=== PATIENT | male | born 1965 | race Caucasian/White ===

== ENCOUNTER → 2019-08-16 13:33 | Outpatient (CLI) | payer MEDICARE | END | disposition home or self-care (01) | LOC: D.LAB 13:33 → D.RAD 14:15 → D.RT 15:00 | PROVIDERS: ATTEND Internal Medicine Pulmonary Disease | DX: J44.9 Chronic obstructive pulmonary disease, unspecified (principal) ==

== ENCOUNTER 2020-03-11 05:50 | Day surgery (SDC) | payer MEDICARE ==
[~2020-03-11] VITALS: Ht 177.8 cm; Wt 140.9 kg
[2020-03-11 06:54] LABS: HEMOGLOBIN 13.8 g/dL (13.5-17.5); MCH 28.3 pg (26.0-34.0); MCHC 31.4 g/dL (31.0-37.0); MCV 90.3 fL (80.0-100.0); RBC 4.87 10x6/uL (4.20-6.10); RDW 12.6 % (11.5-14.5); WBC 7.3 10x3/uL (4.8-10.8)
[2020-03-11 06:58] VITALS: BP 146/108; Ht 177.8 cm; Wt 140.9 kg
--- NOTE | 2020-03-11 08:32 | NUR ---
0892 DR. BRITTANY ROSALES
--- NOTE | 2020-03-11 08:46 | NUR ---
0844 PT DRESSING STATES READY TO GO EAT. O2 98% ON 2L, O2 REMOVED. DENIES PROBLEMS. O2 DC'D. IV DC'D WITH CATH INTACT.
--- NOTE | 2020-03-12 14:37 | OP ---
PATIENT NAME: BRENT BAGLEY MEDICAL RECORD: [id number] :67 LOCATION:[facility] ADMISSION DATE: SURGEON: JANINE SOTO DO DATE OF OPERATION: 03/11/2020 PROCEDURE: EGD with biopsies. INDICATIONS FOR PROCEDURE: Heartburn. SCOPE: Olympus video gastroscope. MEDICATIONS: Versed 2 mg IV, fentanyl 100 mcg IV, propofol 200 mg IV per anesthesia. COMPLICATIONS: None. FINDINGS AND DESCRIPTION OF PROCEDURE: Informed consent was given. The patient was made comfortable with the above medication. After reaching an adequate level of sedation by slow IV push, the patient was placed on his left side. The endoscope was advanced under direct visualization through the mouth to the second portion of the duodenum with ease. The upper esophagus appeared normal. In the middle and distal thirds of the esophagus as well as the GE junction, there was evidence of LA class C reflux-induced esophagitis with greater than 50% of the circumference of the GE junction involved with esophagitis, but there was extension up to at least the mid esophagus of reflux changes. Cold forceps biopsies were taken from the GE junction. The endoscope was advanced beyond the GE junction into the stomach and retroflexed to view the cardia and fundus, which appeared normal. The body of the stomach also appeared normal. In the antrum and prepyloric regions there were some mild chronic gastritis changes consisting of erythema and granularity. Cold forceps, biopsies were taken from the antrum and incisura to submit for histopathology and to rule out the presence of H. pylori. The endoscope was advanced beyond the pylorus and into the duodenum, which appeared normal to the second portion. The endoscope was then withdrawn from the patient. The patient tolerated the procedure well and there were no complications. IMPRESSION: 1. LA class C reflux-induced esophagitis with extension up to the mid esophagus. 2. Mild chronic gastritis of the antrum and prepyloric region. PLAN AND RECOMMENDATIONS: 1. Discharge home when recovery parameters are met. 2. Follow up biopsy specimen results. 3. GERD diet and reflux precautions. 4. Continue current medications, but increase omeprazole to 40 mg daily times 60 days. After that time, can consider reducing back to 20 mg if tolerated, but the patient may require an increased dose based on endoscopic findings today. 5. Add Pepcid or famotidine 40 mg at bedtime to regimen. 6. Follow up in GI clinic in 6-8 weeks. TRANSINT:[id number] Voice Confirmation ID: [id number] DOCUMENT ID: [id number] OPERATIVE REPORT [id number] BRENT BAGLEY NATHAN A DO at 1437 CC: [id number] DICTATION DATE: 03/11/20817 [facility] SUPERINTENDENT: 03/11/20 1227 [facility] 03/11/20 [place] [id number]
== END 2020-03-11 09:00 | disposition home or self-care (01) ==
LOC: D.OPS 05:50
PROVIDERS: Anesthesiology; ATTEND Internal Medicine Gastroenterology
DX: R12 Heartburn (principal); K21.9 Gastro-esophageal reflux disease without esophagitis; K29.50 Unspecified chronic gastritis without bleeding; K92.1 Melena